=== PATIENT | male | born 1940 | race Caucasian/White ===

== ENCOUNTER → 2017-02-28 | Outpatient (CLI) | payer OTHER, MEDICARE ==
[2017-02-28 11:35] LABS: CREATININE 1.3 mg/dL (0.7-1.3)
== END ==
LOC: CAT 10:20
PROVIDERS: Surgery
DX: I77.89 Other specified disorders of arteries and arterioles (principal); N28.1 Cyst of kidney, acquired; Z93.2 Ileostomy status